=== PATIENT | male | born 1990 | race Hispanic/Latino ===

== ENCOUNTER 2017-12-29 09:38 | Inpatient (IN) | payer SELFPAY ==
[2017-12-29 11:08] LABS: #Basophils 0.1 thou/uL (0.0-0.2); #Eosinphils 0.1 thou/uL (0.0-0.7); #Lymphocytes 1.6 thou/uL (1.20-3.40); #Monocytes 2.2 thou/uL (0.11-0.59); #Neutrophils 13.2 thou/uL (1.40-6.50); %Basophils 0.5 % (0.0-1.0); %Eosinophils 0.4 % (0.0-10.0); %Lymphocytes 9.4 % (21.0-51.0); %Monocytes 12.8 % (0.0-10.0); %Neutrophils 76.8 % (42.0-75.0); Hemoglobin 17.5 g/dL (14.0-18.0); Mean Corpuscular HGB CONC 34.7 g/dL (32.0-36.0); Mean Corpuscular Hemoglobin 32.7 pg (27.0-31.0); Mean Corpuscular Volume 94.1 fl (80.0-94.0); Mean Platelet Volume 8.1 fL (7.4-10.4); Platelet Count 297 thou/uL (130-400); RBC Distribution Width 13.2 % (11.5-14.5); Red Blood Cell (RBC) Count 5.36 mill/uL (4.70-6.10); White Blood Cell (WBC) Count 17.2 thou/uL (4.8-10.8)
[2017-12-29 11:34] LABS: ALT (SGPT) 57 U/L (8-55); AST (SGOT) 28 U/L (5-34); Albumin 4.4 g/dL (3.5-5.0); Alkaline Phosphatase 94 U/L (40-150); Anion Gap 15 mmol/L (10-20); BUN (Urea Nitrogen) 8 mg/dL (8.9-20.6); Bilirubin, Total 1.7 mg/dL (0.2-1.2); Calc. Creatinine Clearance 0 mL/min (70-130); Calcium 9.6 mg/dL (7.8-10.44); Carbon Dioxide 23 mmol/L (22-29); Chloride 101 mmol/L (98-107); Estimated GFR-MDRD Greater than 90; Globulin 3.6 g/dL (2.4-3.5); Glucose 94 mg/dL (70-105); Potassium 4.2 mmol/L (3.5-5.1); Sodium 135 mmol/L (136-145)
[2017-12-29] MEDS ORDERED: Ondansetron HCl/PF 4 MG/2 ML Vial IVP PRN ×2 (13:48→15:32)
[2017-12-29] MEDS ORDERED: Ondansetron ODT 4 MG TAB PO PRN ×2 (13:49→15:32)
[2017-12-29 13:51] VITALS: BMI 32.5
[2017-12-29] MEDS ORDERED: Sodium Chloride 0.9% 1,000 ML IV SCH (14:00)
[2017-12-29] MEDS ORDERED: HYDROcodone/Acetaminophen 5/325 mg Tablet PO PRN (15:32)
[2017-12-29] MEDS ORDERED: cloNIDine 0.1 MG TAB PO PRN (15:32)
[2017-12-29] MEDS ORDERED: hydrALAZINE 20 MG/ML VIAL SLOW IVP PRN (15:32)
[2017-12-29] MEDS ORDERED: Acetaminophen 500 MG TAB PO PRN (15:32)
[2017-12-29] MEDS ORDERED: Boostrix 0.5 ML VIAL IM ONE (15:35)
[2017-12-29] MEDS: cefTRIAXone\\ROCEPHIN 2 GM in Sodium Chloride 0.9% 100 ML IVPB SCH (17:40)
[2017-12-29] MEDS: Ketorolac Tromethamine 30 MG/ML VIAL IVP SCH (17:42)
[2017-12-29] MEDS ORDERED: Adacel (T-DAP) 0.5 ML VIAL IM ONE (17:45)
[2017-12-29] MEDS ORDERED: Piperacillin/Tazobactam 4.5 GM in Sodium Chloride 0.9% 100 ML IVPB SCH (18:00)
[2017-12-29] MEDS: Famotidine 20 MG TAB PO SCH (19:45)
--- NOTE | 2017-12-29 22:16 | HP ---
DATE OF ADMISSION: 12/29/2017 PRIMARY CARE PROVIDER: Jean mariano. CHIEF COMPLAINT: Left arm pain and redness. HISTORY OF PRESENT ILLNESS: This is a 27-year-old male who presents to [facility], complaining of increasing swelling, redness and pain to the left arm. The patient sta dangelo he scraped his arm while doing [employer] work approximately a week ago with noting a small area of pustule on the elbow region. The patient was attempted to drain the area with a knife that he lit a match and sterilized and drained some purulence out of the elbow. The patient noted increasing redne ss progressing rapidly in the last 24 to 48 hours. The patient had subjective fever at home with bod y aches and chills. The patient also noted a small pustule on the left knee area sustained at the [facility] time of the left elbow scraped. The patient states this area has been healing after manually expr essing some purulence. The patient states he has had similar episodes on the ankle and mid left thig h in the remote past. The patient denies any known history of diabetes or immunosuppression. The zaheer cabrera states he takes no chronic medications and has no a significant medical history. Patient works in the [employer] industry and remains active with a physically taxing job. The patient is unsure of h is last tetanus. The patient has noticed increasing redness and swelling to the left arm, especially around the elbow region extending up into the upper left arm. In the emergency room, the patient un derwent general evaluation, receiving vancomycin and Zosyn as well as intravenous normal saline. PAST MEDICAL HISTORY: 1. ADHD. 2. Question of bipolar disorder. 3. Alcohol use. 4. Marijuana use. 5. Tobacco use. PAST SURGICAL HISTORY: 1. Status post tonsillectomy. 2. Status post incision and drainage of several skin abscesses. CURRENT MEDICATIONS: Reviewed and negative. ALLERGIES: No known drug allergies. FAMILY HISTORY: Multiple family members with diabetes mellitus. SOCIAL HISTORY: Resides in [place], [place]. Single. Smokes up to 1 to 1-1/2 packs of cigarettes daily . Uses marijuana regularly. Drinks alcohol weekly. REVIEW OF SYSTEMS: The following complete review of systems was negative, unless otherwise mentioned in the HPI or below: Constitutional: Weight loss or gain, ability to conduct usual activities. Sk in: Rash, itching. Eyes: Double vision, pain. ENT/Mouth: Nose bleeding, neck stiffness, pain, te nderness. Cardiovascular: Palpitations, dyspnea on exertion, orthopnea. Respiratory: Shortness of breath, wheezing, cough, hemoptysis, fever or night sweats. Gastrointestinal: Poor appetite, abdom inal pain, heartburn, nausea, vomiting, constipation, or diarrhea. Genitourinary: Urgency, frequenc y, dysuria, nocturia. Musculoskeletal: Pain, swelling. Neurologic/Psychiatric: Anxiety, depressio n. Allergy/Immunologic: Skin rash, bleeding tendency. PHYSICAL EXAMINATION: VITAL SIGNS: On admission, blood pressure 128/83, pulse 91, respiratory rate 16, temperature 98.9 de grees Fahrenheit, O2 saturation 98% on room air. GENERAL APPEARANCE: This is a 27-year-old male, alert, and oriented x3, pleasant, conversan t, in no acute distress. HEENT: Pupils are equal, round, and reactive to light and accommodation. Extraocular muscles are in tact. No scleral icterus, no conjunctival injection. Nares patent. OP is clear. Teeth in fair rep air. NECK: Supple. No cervical adenopathy, no thyromegaly, no carotid bruits, no JVD appreciated. Cervi britton spine with full active and passive range of motion. No meningeal signs appreciated. CHEST: Lungs are clear to auscultation bilaterally. CARDIOVASCULAR: S1, S2, without noted murmur, rub, or gallop. ABDOMEN: Rounded, soft, nontender, nondistended. Bowel sounds are positive in all four quadrants. There is no hepatosplenomegaly, no abdominal bruits, no rebound or guarding appreciated. EXTREMITIES: Warm and dry with fair turgor. Edema noted to the left upper extremity from the distal forearm to the mid humerus with erythema and edema in the elbow region. Circumscribed area of ulcer ation at the elbow with expressible purulence. Positive tenderness to palpation. Neurovascularly in tact distally of the left upper extremity. Lower extremities without clubbing, cyanosis, or asymmetr ic edema. Pulses palpable in all extremities. NEUROLOGIC: Cranial nerves II through XII are grossly intact. No focal or lateralizing signs apprec iated. PERTINENT LABORATORY FINDINGS: Sodium 135, potassium 4.2, chloride 101, CO2 of 23, BUN 8, creatinine 0.81, glucose 94. Lactic acid level 0.8, total bilirubin 1.7, AST 28, ALT of 57, albumin 4.4. CBC showed a white blood cell count of 17.2, hemoglobin 17.5, hematocrit 50, MCV 94, platelet count 297,0 00 with 77% neutrophils. ASSESSMENT AND PLAN: 1. Left upper extremity olecranon abscess/cellulitis. The patient will be admitted to the [facility]. We will continue vancomycin 1 gram IV q.12 hours with additional Rocephin 2 grams IV q.24 hour s. We will continue IV antibiotic therapy and monitor for potential need of incision and drainage. Expressible purulence noted with open communication to likely superficial abscess. We will continue monitoring over the next 24 hours. Pain control with Toradol 30 mg IV q.6 hours, [place] 5/325 mg p.o. q.6 hours p.r.n. Wound care for local care. 2. Neutrophilic leukocytosis. Secondarily to #1. We will continue serial CBC assessment and monito r white blood cell trend. 3. Polysubstance use. We will offer smoking cessation resources and information regarding marijuana use. 4. Transaminitis. Mild. We will continue to monitor serial liver function test trend. No current evidence to suggest an acute obstructive process. 5. Prophylaxis. Sequential compression devices while in bed. Pepcid 20 mg p.o. b.i.d. 6. Tetanus immunization. 7. Code status is FULL. Surrogate medical decision maker is the patient's mother.
[2017-12-30] MEDS ORDERED: Vancomycin HCl 1 GM in Premix Bag 1 BAG IVPB SCH
[2017-12-30] MEDS: Ketorolac Tromethamine 30 MG/ML VIAL IVP SCH ×4 (00:12→17:15)
[2017-12-30] MEDS: Vancomycin HCl 1 GM in Premix Bag 1 BAG IVPB SCH ×2 (00:13→12:23)
[2017-12-30 04:47] LABS: Band 5 % (5-11); Eosinophils 2 % (0-10); Hemoglobin 15.6 g/dL (14.0-18.0); Lymphocytes 20 % (21-51); MDiff Complete? YES; Mean Corpuscular HGB CONC 33.3 g/dL (32.0-36.0); Mean Corpuscular Hemoglobin 31.8 pg (27.0-31.0); Mean Corpuscular Volume 95.7 fl (80.0-94.0); Mean Platelet Volume 8.4 fL (7.4-10.4); Monocytes 10 % (0-10); Neutrophil 61 % (42-75); PLT Morphology Comment Appears Adequate; Platelet Count 251 thou/uL (130-400); RBC Distribution Width 13.2 % (11.5-14.5); White Blood Cell (WBC) Count 10.4 thou/uL (4.8-10.8)
[2017-12-30 04:52] LABS: ALT (SGPT) 33 U/L (8-55); AST (SGOT) 15 U/L (5-34); Albumin 3.2 g/dL (3.5-5.0); Alkaline Phosphatase 90 U/L (40-150); Anion Gap 10 mmol/L (10-20); BUN (Urea Nitrogen) 10 mg/dL (8.9-20.6); Bilirubin, Total 0.4 mg/dL (0.2-1.2); Calc. Creatinine Clearance 181 mL/min (70-130); Calcium 8.6 mg/dL (7.8-10.44); Carbon Dioxide 24 mmol/L (22-29); Chloride 107 mmol/L (98-107); Estimated GFR-MDRD Greater than 90; Globulin 2.6 g/dL (2.4-3.5); Glucose 109 mg/dL (70-105); Potassium 3.8 mmol/L (3.5-5.1); Protein, Total 5.8 g/dL (6.0-8.3); Sodium 137 mmol/L (136-145)
[2017-12-30] MEDS: Famotidine 20 MG TAB PO SCH ×2 (06:57→20:00)
[2017-12-30] MEDS ORDERED: Lidocaine 1% w/Epinephrine 1:100K 20 ML VIAL ONE (10:01)
[2017-12-30] MEDS: cefTRIAXone\\ROCEPHIN 2 GM in Sodium Chloride 0.9% 100 ML IVPB SCH (17:16)
--- NOTE | 2017-12-30 20:27 | PDOC.PN ---
- Subjective Encounter Start Date: 12/30/17 Encounter Start Time: 10:05 Subjective: f/u for L elbow abscess/cellulitis on Vancomycin and Rocephin. Some -: improvement in redness and pain. - Objective Resuscitation Status: Resuscitation Status FULL:Full Resuscitation MAR Reviewed: Yes Vital Signs & Weight: Vital Signs (12 hours) Temp Pulse Resp BP Pulse Ox 12/30/17 19:53 98.4 F 54 L 16 115/71 98 12/30/17 17:06 98 F 64 16 118/78 95 12/30/17 12:04 98.5 F 67 16 123/71 95 Weight Admit Weight 189 lb 9.561 oz Weight 189 lb 9.561 oz Result Diagrams: 12/30/17 04:01 12/30/17 04:01 Additional Labs: Microbiology 12/29/17 11:55 Venous blood - Right Arm Blood Culture - Preliminary Specimen has been received and culture in progress. No Growth to date. 12/29/17 11:53 Elbow - Pending Bacterial Culture - Preliminary Staphylococcus aureus 12/29/17 10:58 Venous blood - Right Arm Blood Culture - Preliminary Specimen has been received and culture in progress. No Growth to date. Laboratory Tests 12/29/17 12/29/17 10:58 10:58 WBC 17.2 H Neutrophils % 76.8 H Total Bilirubin 1.7 H ALT 57 H Phys Exam - Physical Examination Constitutional: NAD HEENT: PERRLA, sclera anicteric, oral pharynx no lesions Neck: no nodes, no JVD, supple, full ROM Respiratory: no wheezing, no rales, no rhonchi, clear to auscultation bilateral S1, S2 Cardiovascular: RRR, no significant murmur, no rub, gallop Gastrointestinal: soft, non-tender, no distention, positive bowel sounds L elbow with edema, expressed purulence, + TTP N/V intact distally Musculoskeletal: pulses present, edema present Neurological: normal sensation, moves all 4 limbs Psychiatric: normal affect, A&O x 3 Skin: normal turgor, cap refill <2 seconds Dx/Plan (1) Abscess of bursa of left elbow Code(s): M71.022 - ABSCESS OF BURSA, LEFT ELBOW Status: Acute Comment: Continue IV Vancomycin and Rocephin, will proceed with I&D today for assist with drainage of abscess cavity, pain control prn (2) Cellulitis of left upper extremity Code(s): L03.114 - CELLULITIS OF LEFT UPPER LIMB Status: Acute Comment: Mild improvement with IV Vanc/Rocephin, see #1 above (3) Neutrophilic leukocytosis Code(s): D72.9 - DISORDER OF WHITE BLOOD CELLS, UNSPECIFIED Status: Acute Comment: Improved with IV abx therapy, see #1 (4) Polysubstance (excluding opioids) dependence, daily use Code(s): F19.20 - OTHER PSYCHOACTIVE SUBSTANCE DEPENDENCE, UNCOMPLICATED Status: Acute Comment: Will offer resources regarding cessation as outpt - Plan continue antibiotics, 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
[2017-12-31] MEDS: Ketorolac Tromethamine 30 MG/ML VIAL IVP SCH ×5 (00:10→23:39)
[2017-12-31 01:01] LABS: Vancomycin, Trough 4.8 ug/mL
[2017-12-31] MEDS: Vancomycin HCl 1 GM in Premix Bag 1 BAG IVPB SCH (01:33)
[2017-12-31] MEDS: Vancomycin HCl 1.5 GM in Sodium Chloride 0.9% 250 ML 300 ML IVPB SCH ×3 (01:36→17:18)
[2017-12-31 04:03] LABS: Band 3 % (5-11); Eosinophils 2 % (0-10); Hemoglobin 15.3 g/dL (14.0-18.0); Lymphocytes 28 % (21-51); MDiff Complete? YES; Mean Corpuscular Hemoglobin 33.5 pg (27.0-31.0); Mean Corpuscular Volume 95.7 fL (78.0-98.0); Mean Platelet Volume 8.6 fL (7.4-10.4); Monocytes 12 % (0-10); Neutrophil 55 % (42-75); PLT Morphology Comment Appears Adequate; Platelet Count 247 thou/uL (130-400); RBC Distribution Width 13.2 % (11.5-14.5); Red Blood Cell (RBC) Count 4.58 mill/uL (4.70-6.10); White Blood Cell (WBC) Count 9.5 thou/uL (4.8-10.8)
--- NOTE | 2017-12-31 07:07 | OP ---
DATE OF PROCEDURE: 12/30/2017 PROCEDURE: Incision and drainage of left elbow abscess of the skin. CONSENT: Informed. SPORTS WRITER: Dr. Jalen Britton. CHECKER STOCKER: Dr. Usman Hopper, third year medical student ANESTHESIA: 1% lidocaine with epinephrine. DESCRIPTION: The patient was prepped and draped in sterile fashion. A Betadine swab sticks to superficial area of the left elbow with anesthesia applied using 1% lidocaine with epinephrine. Using a 15 blade, an incision was made at the apex of the abscess site on the left elbow with expression of purulent material and bloody discharge using manual and blunt dissection with hemostats. The entire cavity was excised and iodoform gauze packing was applied into the abscess cavity. Sterile gauze dressing was applied using Cob[place] and patient tolerated the procedure well. ESTIMATED BLOOD LOSS: Minimal. COMPLICATIONS: None. CONDITION OF THE PATIENT: Stable. [facility]
[2017-12-31] MEDS: Famotidine 20 MG TAB PO SCH ×2 (09:06→19:45)
--- NOTE | 2017-12-31 10:46 | PDOC.PN ---
- Subjective Encounter Start Date: 12/31/17 Encounter Start Time: 10:30 Subjective: f/u for L elbow cellulitis/abscess s/p I&D 12/30/17. Feels better with -: some pain with movement. No fever or chills. Currently on Vanc/Rocephin - Objective Resuscitation Status: Resuscitation Status FULL:Full Resuscitation MAR Reviewed: Yes Vital Signs & Weight: Vital Signs (12 hours) Temp Pulse Resp BP Pulse Ox 12/31/17 08:11 97.9 F 59 L 18 99/66 95 12/31/17 07:12 98.4 F 54 L 16 Weight Admit Weight 189 lb 9.561 oz Weight 189 lb 9.561 oz Result Diagrams: 12/31/17 00:25 12/30/17 04:01 Additional Labs: Microbiology 12/29/17 11:53 Elbow - Pending Bacterial Culture - Final Staphylococcus aureus 12/29/17 11:55 Venous blood - Right Arm Blood Culture - Preliminary Specimen has been received and culture in progress. No Growth to date. 12/29/17 11:53 Elbow - Pending Bacterial Culture - Preliminary Staphylococcus aureus 12/29/17 10:58 Venous blood - Right Arm Blood Culture - Preliminary Specimen has been received and culture in progress. No Growth to date. Laboratory Tests 12/29/17 12/29/17 10:58 10:58 WBC 17.2 H Neutrophils % 76.8 H Total Bilirubin 1.7 H ALT 57 H Phys Exam - Physical Examination Constitutional: NAD HEENT: PERRLA, sclera anicteric, oral pharynx no lesions Neck: no nodes, no JVD, supple, full ROM Respiratory: no wheezing, no rales, no rhonchi, clear to auscultation bilateral S1, S2 Cardiovascular: RRR, no significant murmur, no rub, gallop Gastrointestinal: soft, non-tender, no distention, positive bowel sounds L elbow with drainage on dressing, wound packing in place, edema decreased in forearm Musculoskeletal: pulses present Neurological: non-focal, normal sensation, moves all 4 limbs Psychiatric: normal affect, A&O x 3 Skin: no rash, normal turgor, cap refill <2 seconds Dx/Plan (1) Abscess of bursa of left elbow Code(s): M71.022 - ABSCESS OF BURSA, LEFT ELBOW Status: Acute Comment: Continue IV Vancomycin and Rocephin, s/o I&D POD #1, pain control prn, WCT for dressing changes and packing replacement (2) Cellulitis of left upper extremity Code(s): L03.114 - CELLULITIS OF LEFT UPPER LIMB Status: Acute Comment: Mild improvement with IV Vanc/Rocephin, see #1 above (3) Neutrophilic leukocytosis Code(s): D72.9 - DISORDER OF WHITE BLOOD CELLS, UNSPECIFIED Status: Acute Comment: Improved with IV abx therapy, see #1 (4) Polysubstance (excluding opioids) dependence, daily use Code(s): F19.20 - OTHER PSYCHOACTIVE SUBSTANCE DEPENDENCE, UNCOMPLICATED Status: Acute Comment: Will offer resources regarding cessation as outpt - Plan continue antibiotics, 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
[2017-12-31] MEDS: cefTRIAXone\\ROCEPHIN 2 GM in Sodium Chloride 0.9% 100 ML IVPB SCH (19:45)
[2018-01-01 01:20] LABS: Vancomycin, Trough 15.3 ug/mL
[2018-01-01] MEDS: Vancomycin HCl 1.5 GM in Sodium Chloride 0.9% 250 ML 300 ML IVPB SCH ×2 (01:40→09:40)
[2018-01-01] MEDS: Ketorolac Tromethamine 30 MG/ML VIAL IVP SCH (05:21)
[2018-01-01 08:07] VITALS: BP 119/76; TEMP 98
[2018-01-01] MEDS: Famotidine 20 MG TAB PO SCH (09:40)
--- NOTE | 2018-01-01 11:23 | DIS ---
DATE OF ADMISSION: 12/29/2017 DATE OF DISCHARGE: 01/01/2018 DISCHARGE DIAGNOSES: 1. Left elbow abscess. 2. Status post incision and drainage of left elbow abscess. 3. Cellulitis of left upper extremity, resolving. 4. Neutrophilic leukocytosis, resolved. 5. Polysubstance use. CONSULTATIONS: None. PERTINENT LABORATORY DATA AND X-RAY FINDINGS: Basic metabolic profile within normal limits. Lactic acid level 0.8. CBC showed a white blood cell count ranging between 9.5-17.2. Blood cultures x2 fro m 12/29/2017 showed no growth at 48 hours. The left elbow wound culture positive for Staphylococcus aureus. HOSPITAL COURSE: Patient was admitted after presenting with left arm pain, redness and cellulitis wi th associated olecranon bursa abscess. The patient underwent evaluation including IV antibiotic ther apy with Rocephin and vancomycin. The patient also underwent incision and drainage of the left elbow abscess with Staphylococcus aureus species noted on wound culture. The patient continued on Rocephi n and vancomycin throughout his hospital course with overall resolution of the erythema and decreased drainage from the wound site. The patient received local wound care with daily dressing changes. T he patient also received education regarding self-care after discharge. The patient was given a teta nus booster during his hospital course and overall remained clinically stable. I have examined the p atient at the time of discharge discussing followup instructions and wound care at which point the pa deborah verbalizes understanding and agreement. The patient overall clinically stable and ready for di scharge on 01/01/2018. DISCHARGE MEDICATION: Augmentin 875 mg 1 tab p.o. b.i.d. x10 days. FOLLOWUP: The patient may follow up with [facility] or [facility] All within 3 days of discharge. CONDITION ON DISCHARGE: Stable. ACTIVITY: Ad david. DIET: Regular. SPECIAL INSTRUCTIONS: Wound care instructions given with recommendations for removal of wound packin g in 24 hours and replacing with new packing. CODE STATUS: FULL. DISPOSITION: Home, 01/01/2018. Total time in preparing and coordinating this discharge is 32 minutes.
--- NOTE | 2018-01-02 13:00 | PQF ---
Yehuda KelloggHUSSAIN DO [id number] CLINICAL DOCUMENTATION CLARIFICATION FORM: POST DISCHARGE Addendum to original discharge summary date: ____ Late entry note date: _skin abscess drainage Please exercise your independent, professional judgment in responding to the clarification form. Clinical indicators are provided on the bottom of this form for your review Procedure: INCISION AND DRAINAGE OF LEFT ELBOW -- SKIN -- SUBCUTANEOUS TISSUE AND FASCIA -- BURSA [ ] Unable to determine [ ] Other procedure: CLINICAL INDICATORS - SIGNS/ SYMPTOMS / LABS Op Note/Procedure note RISK FACTORS TREATMENT (This form is maintained as a part of the permanent medical record) 2014 [employer] All Rights Reserved [email or web address] [phone] MTDD
== END 2018-01-01 12:24 | disposition home or self-care (01) | DRG 603 ==
LOC: ERS 09:38 → T4-A 13:43
PROVIDERS: ADMIT Family Medicine; ATTEND Family Medicine
PROC: 3E0234Z Introduction of Serum, Toxoid and Vaccine into Muscle, Percutaneous Approach (ICD-10-PCS; 2017-12-29)
PROC: 0H9EXZZ Drainage of Left Lower Arm Skin, External Approach (ICD-10-PCS; principal; 2017-12-30)
DX: L02.414 Cutaneous abscess of left upper limb (principal); L03.114 Cellulitis of left upper limb; F17.210 Nicotine dependence, cigarettes, uncomplicated; M71.022 Abscess of bursa, left elbow; S50.312A Abrasion of left elbow, initial encounter; X58.XXXA Exposure to other specified factors, initial encounter; F90.9 Attention-deficit hyperactivity disorder, unspecified type; R74.0 Nonspecific elevation of levels of transaminase and lactic acid dehydrogenase [LDH]; B95.8 Unspecified staphylococcus as the cause of diseases classified elsewhere; F31.9 Bipolar disorder, unspecified; F12.10 Cannabis abuse, uncomplicated; F10.10 Alcohol abuse, uncomplicated; Y92.9 Unspecified place or not applicable; Z86.19 Personal history of other infectious and parasitic diseases; Z87.2 Personal history of diseases of the skin and subcutaneous tissue; Z83.3 Family history of diabetes mellitus; Z23 Encounter for immunization
CPT/HCPCS: 36415; 80053; 80202; 83605; 85007; 85025; 85027; 87040; 87070; 87077; 87186; 87205; 90715; 96365; 99406; J0696; J1885; J2001; J3370; J7050

== ENCOUNTER 2018-12-10 14:16 | Emergency (ER) | payer SELFPAY ==
[~2018-12-10 14:16] MED LIST: ISOVUE-370 76%-LOCM 1 ML ONE
[2018-12-10] MEDS ORDERED: HYDROcodone/Acetaminophen 10/325 mg Tablet ONE (14:49)
--- NOTE | 2018-12-10 14:55 | RAD ---
RADIOGRAPH RIGHT FOREARM 2 VIEWS: Date: 12/10/18 Time: 1439 hours HISTORY: 28-year-old male with painful, traumatic right wrist deformity due to fall from roof. FINDINGS: There is a comminuted fracture of the distal radial metaphysis and epiphysis, with intraarticular inv olvement where there is step-off at the radiocarpal joint surface. Dorsal angulation of the major dis roverto fragment. No fracture of the ulna identified. IMPRESSION: Acute, traumatic, closed, comminuted, displaced, intraarticular fracture of distal radial metaphysis and epiphysis. POS: [facility]
--- NOTE | 2018-12-10 14:56 | RAD ---
RADIOGRAPH RIGHT WRIST 2 VIEWS: Date: 12/10/18 Time: 1432 hours HISTORY: 28-year-old male with painful, traumatic right wrist deformity due to fall from roof. FINDINGS: There is a comminuted fracture of the distal radial metaphysis and epiphysis, with intraarticular inv olvement where there is step-off at the radiocarpal joint surface. Dorsal angulation of the major dis roverto fragment. No fracture of the distal ulna or carpal bones identified. IMPRESSION: Acute, traumatic, closed, comminuted, displaced, intraarticular fracture of distal radial metaphysis and epiphysis. POS: [facility]
[2018-12-10] MEDS ORDERED: Lidocaine 1% (PF) 30 ML VIAL ONE (15:01)
[2018-12-10] MEDS ORDERED: Bupivacaine 0.5% 10 ML VIAL ONE (15:01)
[2018-12-10] MEDS ORDERED: Lorazepam 2 MG/ML VIAL ONE (15:37)
--- NOTE | 2018-12-10 15:37 | CT ---
CT Brain WO Con: 12/10/2018 3:09 PM CLINICAL HISTORY: Fall with head injury, pain. COMPARISON: 04/13/2014 FINDINGS: Hemorrhage: None. Ventricular system: Normal in size and morphology for the patient's age. Cerebral parenchyma: Normal Midline shift: None. Mass: No mass effect. Calvarium: Normal. Visualized Paranasal sinuses: Clear. IMPRESSION: No acute intracranial abnormalities. Notification of findings placed at 1533 hours.
--- NOTE | 2018-12-10 16:14 | RAD ---
PORTABLE CHEST 1 VIEW: Date: 12/10/18 Time: 1513 hours HISTORY: Trauma. Chest pain. FINDINGS: Comparison made with exam of 09/11/15. The heart size is normal. The lungs are expanded without focal areas of consolidation, pneumothoraces or pleural effusions. IMPRESSION: No acute process. POS: OFF
--- NOTE | 2018-12-10 16:40 | CT ---
CT CERVICAL SPINE WITH CORONAL AND SAGITTAL REFORMATIONS: Date: 12/10/18 HISTORY: Level II trauma. Neck pain. FINDINGS: Cervical lordosis is maintained. No fracture, subluxation, or bony destruction is seen. No prevertebr al soft tissue swelling is identified. The visualized lung dominguez are clear. IMPRESSION: No CT evidence of cervical spine fracture or traumatic subluxation. Discussed over the telephone with ER physician, Dr. Julien, at 1536 hours. CODE CR. POS: OFF
--- NOTE | 2018-12-10 16:41 | RAD ---
XR Wrist Rt 2 View: 12/10/2018 4:18 PM CLINICAL INDICATION: Right wrist fracture COMPARISON: Prior exam dated December 10, 2018 at 2:30 PM. TECHNIQUE: 2 views. Laterality: Right wrist. FINDINGS: Bones: There is stable comminuted dorsally angulated intra-articular distal radius fracture. There i s been interval placement of a fiberglass splint. Fracture alignment is unchanged. Joints: Joints space is preserved.. Soft Tissue: There is soft tissue swelling of the forearm and right wrist.. IMPRESSION: Interval placement of a splint to the right forearm. Comminuted intra-articular distal radius fractur e is not appreciably changed in position and alignment when compared to the prior exam..
--- NOTE | 2018-12-10 16:44 | CT ---
CT CHEST WITH IV CONTRAST CT ABDOMEN WITH IV CONTRAST CT PELVIS WITH IV CONTRAST CORONAL AND SAGITTAL REFORMATIONS OF THE THORACOLUMBAR SPINE: Date: 12/10/18 HISTORY: Level II trauma. Chest, abdominal, and back pain. FINDINGS: No mediastinal hematoma or intimal flap in the aorta is seen to suggest aortic transection. No pleura l or pericardial effusions are seen. No pulmonary contusions or pneumothoraces are identified. There are mild dependent changes in the posterior lung bases. The liver, spleen, pancreas, adrenal glands, and kidneys are intact. No free air or free fluid is see n in the abdomen or pelvis. Urinary bladder and gallbladder also appear intact. No fracture or subluxation is seen in the thoracolumbar spine. IMPRESSION: No CT evidence of acute intrathoracic or solid organ injury. Discussed over the telephone with ER physician, Dr. Astrid Koenig, at 1543 hours. CODE CR. POS: OFF
== END 2018-12-10 17:40 | disposition home or self-care (01) ==
LOC: ERS 14:16
DX: S52.571A Other intraarticular fracture of lower end of right radius, initial encounter for closed fracture (principal); S20.211A Contusion of right front wall of thorax, initial encounter; F31.9 Bipolar disorder, unspecified; F90.9 Attention-deficit hyperactivity disorder, unspecified type; F17.210 Nicotine dependence, cigarettes, uncomplicated; W13.2XXA Fall from, out of or through roof, initial encounter
CPT/HCPCS: 29125; 70450; 71045; 71260; 72125; 74177; 96374; J2001; J2060; J3490; Q9966

== ENCOUNTER 2018-12-11 08:49 | Emergency (ER) | payer SELFPAY | END 2018-12-11 09:15 | disposition home or self-care (01) | LOC: ERS 08:49 | DX: S62.101D Fracture of unspecified carpal bone, right wrist, subsequent encounter for fracture with routine healing (principal); Z76.0 Encounter for issue of repeat prescription; F31.9 Bipolar disorder, unspecified; F90.9 Attention-deficit hyperactivity disorder, unspecified type; F17.210 Nicotine dependence, cigarettes, uncomplicated | CPT/HCPCS: 99283 ==

== ENCOUNTER 2018-12-11 17:18 | Emergency (ER) | payer SELFPAY ==
[2018-12-11] MEDS ORDERED: HYDROcodone/Acetaminophen 10/325 mg Tablet ONE (17:38)
--- NOTE | 2018-12-11 18:45 | RAD ---
EXAM: 3 views of the right hand COMPARISON: None HISTORY: Tingling and coldness in fingers. Distal forearm fracture. FINDINGS: 3 views of the right hand shows no evidence of acute fracture or dislocation of the bones o f the hand. There is a comminuted distal radius fracture that is partially visualized. No degenerative changes are seen. No soft tissue swelling is present. IMPRESSION: 1. No evidence of fracture of the bones of the hand 2. Distal radius fracture
--- NOTE | 2018-12-11 18:46 | RAD ---
EXAM: 2 views of the right forearm HISTORY: Right forearm fracture with pain COMPARISON: 12/10/2018 FINDINGS: There is a stable intra-articular fracture of the distal radius. Moderate diffuse tissue sw elling is seen. No degenerative changes are seen in the wrist or elbow. IMPRESSION: Stable intra-articular distal radius fracture
== END 2018-12-11 19:27 | disposition home or self-care (01) ==
LOC: ERS 17:18
DX: S52.571A Other intraarticular fracture of lower end of right radius, initial encounter for closed fracture (principal); F31.9 Bipolar disorder, unspecified; F90.9 Attention-deficit hyperactivity disorder, unspecified type; F17.210 Nicotine dependence, cigarettes, uncomplicated; W19.XXXA Unspecified fall, initial encounter
CPT/HCPCS: 24650

== ENCOUNTER 2018-12-14 13:10 | Outpatient (CLI) | payer SELFPAY ==
[2018-12-14 14:27] LABS: #Basophils 0.1 thou/uL (0.0-0.2); #Eosinphils 0.2 thou/uL (0.0-0.7); #Lymphocytes 2.3 thou/uL (1.20-3.40); #Monocytes 0.7 thou/uL (0.11-0.59); #Neutrophils 4.9 thou/uL (1.40-6.50); %Eosinophils 2.9 % (0.0-10.0); %Lymphocytes 27.6 % (21.0-51.0); %Monocytes 8.7 % (0.0-10.0); %Neutrophils 59.8 % (42.0-75.0); Hemoglobin 14.3 g/dL (14.0-18.0); Mean Corpuscular HGB CONC 33.7 g/dL (32.0-36.0); Mean Corpuscular Hemoglobin 31.5 pg (27.0-31.0); Mean Corpuscular Volume 93.6 fL (78.0-98.0); Mean Platelet Volume 8.5 fL (7.4-10.4); Platelet Count 256 thou/uL (130-400); Red Blood Cell (RBC) Count 4.55 mill/uL (4.70-6.10); White Blood Cell (WBC) Count 8.2 thou/uL (4.8-10.8)
== END 2018-12-14 13:11 | disposition home or self-care (01) ==
LOC: LABBT 13:10
PROVIDERS: ATTEND Orthopaedic Surgery Hand Surgery
DX: Z01.812 Encounter for preprocedural laboratory examination (principal); S62.101A Fracture of unspecified carpal bone, right wrist, initial encounter for closed fracture
CPT/HCPCS: 85025

== ENCOUNTER 2018-12-15 12:38 | Day surgery (SDC) | payer SELFPAY ==
[2018-12-14 13:50] VITALS: BMI 29.2
[2018-12-15] MEDS ORDERED: Fentanyl 100 MCG/2 ML VIAL ONE ×2 (14:20→15:25)
[2018-12-15] MEDS ORDERED: Lidocaine 1% (PF) 30 ML VIAL ONE (14:20)
[2018-12-15] MEDS ORDERED: Midazolam HCl 2 mg/2 ml Vial ONE ×2 (14:20→15:25)
[2018-12-15] MEDS ORDERED: Bacitracin Zinc Ointment 30 gm TUBE ONE (15:31)
[2018-12-15] MEDS ORDERED: Bupivacaine PF 0.5% 30 ML VIAL ONE (15:31)
--- NOTE | 2018-12-15 19:00 | RAD ---
RIGHT WRIST TWO VIEWS: 12/15/18 HISTORY: ORIF right wrist for fracture. Metal plate and screws are placed stabilizing a comminuted distal radial fracture with intra-articula r extension with improvement in position and alignment from the Prereduction study. IMPRESSION: Status post ORIF distal right radius with improvement in position and alignment. POS: OFF
[2018-12-15] MEDS ORDERED: Ketorolac Tromethamine 30 MG/ML VIAL ONE (19:03)
--- NOTE | 2018-12-16 14:28 | OP ---
DATE OF PROCEDURE: 12/15/2018 PREOPERATIVE DIAGNOSES: Right 4-part displaced distal radius fracture and dorsal comminution. POSTOPERATIVE DIAGNOSES: Right 4-part displaced distal radius fracture and dorsal comminution. PROCEDURES PERFORMED: 1. Open reduction and internal fixation of 4-part of the right distal radius fracture. 2. Major bone grafting. 3. C-arm supervision. 4. Long-arm splint application. BONE GRAFT: 10 mL total of cancellous cubes. FINDINGS: Severe dorsal comminution even involving a split of the Melone fragment into 4-part. DESCRIPTION OF PROCEDURE: After successful general endotracheal anesthesia by [facility], the patient had limb prepped and draped. The C-arm brought to the field, closed reduction was not adequate. We then knew we have to make an incision with the greatest comminution in dorsal approach was indicated. The patient had the incision outlined, a 20 mL of 0.5% Marcaine given and we made approach to using the interval between the third and fourth dorsal compartment. We then visualized the extensor pollicis longus, protected it with appropriate retraction and noticed that once we opened the retinaculum, fracture could be visualized. There was marked comminution. We did not open the primary radiocarpal joint. We then began to pieced the pieces back together finding that the styloid portion was in three fragments and the Melone portion was in four fragments. We gently first reconstructed the sagittal plane by DM pack in the primary fragments from the shaft. We then slowly lifted them up individually, and in the frontal plane, realigned the joint surface, held this with a large moulton elevator at approximately 5 degrees palmar tilt. We then began to place cancellous cubes underneath the surface to support this until we had reached a point, where we had corrected the previous 38 degree dorsal tilt angulation, restored the height to a 2 mm radial height, and we had no step-off. There was an approximately 0.5 mm fracture line still visible, but there was no step-off, and we bone grafted this. We provisionally pinned this to hold this position. There was somewhat comminution around Richard tubercle that was not elevated, but we used dual plates avoiding the prominence of the Richard tubercle, first fixing the radial styloid four portion while we have four K-wires supporting the remaining fragments with two 7 screws and a L-plate from the dorsal Synthe[employer] distal radius set. A T-plate, was used to place the screw in the Melone fragment and this maintained approximately 3 degree palmar tilt. We had to maintain the height, the bone grafting was augmented around the plate, there was one fracture line seen between the Melone and in the middle of the Melone medial complex, but this was bone grafted up to the level of the joint surface with no step-off. The patient then had 4 screws class eight cortices proximal to the fracture and five screws/ten cortices distal. Hip passive range of motion without crepitance of almost 75 degrees of dorsiflexion and 85 degrees palmar flexion. No instability was seen in distal radioulnar joint and there was no fracture of the ulna. There was no evidence of widening of the intercarpal distance at this time. The patient then had the tourniquet deflated, bone graft had been completed. We closed the retinaculum except for approximate 1 cm area, where we had been too tight. This was done with a 2-0 Vicryl undyed. A 4-0 Monocryl was used for subcutaneous running closure and the epidermis reapproximated with interrupted 4-0 nylon. The patient left the operating room without evidence of anesthetic or operative complication. Job ID: [id number]
== END 2018-12-15 20:25 | disposition home or self-care (01) ==
LOC: SDC 12:38
PROVIDERS: ATTEND Orthopaedic Surgery Hand Surgery
PROC: 0PUH0JZ Supplement Right Radius with Synthetic Substitute, Open Approach (ICD-10-PCS; principal; 2018-12-15)
PROC: 3E0T3BZ Introduction of Anesthetic Agent into Peripheral Nerves and Plexi, Percutaneous Approach (ICD-10-PCS; principal; 2018-12-15)
PROC: 0PSH04Z Reposition Right Radius with Internal Fixation Device, Open Approach (ICD-10-PCS; principal; 2018-12-15)
DX: S52.571A Other intraarticular fracture of lower end of right radius, initial encounter for closed fracture (principal); S52.511A Displaced fracture of right radial styloid process, initial encounter for closed fracture; G89.18 Other acute postprocedural pain; F17.200 Nicotine dependence, unspecified, uncomplicated; Z79.1 Long term (current) use of non-steroidal anti-inflammatories (NSAID); Z79.899 Other long term (current) drug therapy; W13.2XXA Fall from, out of or through roof, initial encounter
CPT/HCPCS: 76000; C1713; J0690; J1885; J2001; J2250; J3010; S0020

== ENCOUNTER 2019-11-15 14:52 | Emergency (ER) | payer OTHER, SELFPAY ==
--- NOTE | 2019-11-17 12:45 | RAD ---
Exam:Right shoulder 3 view HISTORY: Trauma. Pain. COMPARISON: None FINDINGS: Glenohumeral joint space is preserved. No fracture or dislocation. Remote injury to the ant erolateral right second rib suspected. Visualized lung parenchyma is unremarkable IMPRESSION: No fracture or dislocation. Remote injury to the right second rib.
== END 2019-11-15 16:00 | disposition home or self-care (01) ==
LOC: ERS 14:52
DX: S46.911A Strain of unspecified muscle, fascia and tendon at shoulder and upper arm level, right arm, initial encounter (principal); F31.9 Bipolar disorder, unspecified; F90.9 Attention-deficit hyperactivity disorder, unspecified type; V89.2XXA Person injured in unspecified motor-vehicle accident, traffic, initial encounter

== ENCOUNTER 2023-02-20 11:09 | Emergency (ER) | payer SELFPAY ==
[2023-02-20 14:39] LABS: #Basophils 0.1 thou/uL (0.0-0.2); #Eosinphils 0.2 thou/uL (0.0-0.7); #Neutrophils 5.5 thou/uL (1.40-6.50); %Basophils 1.3 % (0.0-1.0); %Eosinophils 2.5 % (0.0-10.0); %Lymphocytes 19.4 % (21.0-51.0); %Monocytes 12.1 % (0.0-10.0); %Neutrophils 64.3 % (42.0-75.0); Hematocrit 49.2 % (42.0-52.0); Hemoglobin 17.5 g/dL (14.0-18.0); Mean Corpuscular HGB CONC 35.6 g/dL (32.0-36.0); Mean Corpuscular Hemoglobin 32.6 pg (27.0-31.0); Mean Corpuscular Volume 91.6 fl (78.0-98.0); Mean Platelet Volume 10.2 fL (7.4-10.4); Platelet Count 313 10x3/uL (130-400); RBC Distribution Width 13.1 % (11.5-14.5); Red Blood Cell (RBC) Count 5.37 mill/uL (4.70-6.10); White Blood Cell (WBC) Count 8.5 10x3/uL (4.8-10.8)
[2023-02-20 15:08] LABS: ALT (SGPT) 28 U/L (8-55); AST (SGOT) 41 U/L (5-34); Albumin 4.8 g/dL (3.5-5.0); Alkaline Phosphatase 79 U/L (40-110); Anion Gap 16 mmol/L (10-20); BUN (Urea Nitrogen) 11 mg/dL (8.9-20.6); Bilirubin, Total 1.3 mg/dL (0.2-1.2); Calc. Creatinine Clearance 0 mL/min (70-130); Calcium 9.6 mg/dL (7.8-10.44); Carbon Dioxide 23 mmol/L (22-29); Chloride 102 mmol/L (98-107); Estimated GFR 121; Globulin 2.7 g/dL (2.4-3.5); Glucose 91 mg/dL (70-105); Potassium 4.4 mmol/L (3.5-5.1); Protein, Total 7.5 g/dL (6.0-8.3); Sodium 137 mmol/L (136-145)
[2023-02-20 17:21] LABS: Bacteria/HPF None Seen HPF (None Seen); Bilirubin Negative (Negative); Blood, Urine Negative (Negative); CAUTI Indications for Culture Pelvic or flank pain; Clarity Clear (Clear); Glucose, Urine (Dipstick) Normal (Negative); Ketone, Urine 60 mg/dL (Negative); Leukocyte 250 Leu/uL (Negative); Nitrite Negative (Negative); Protein, Urine (Dipstick) Negative (Neg-Trace); RBC/HPF 0-3 HPF (0-3); Specific Gravity, Urine 1.017 (1.002-1.036); Squamous Epithelial None Seen HPF (0-3); Urobilinogen Normal mg/dL (Less than 2); pH, Urine 5.5 (5.0-9.0)
[2023-02-20 17:23] LABS: Urine Culture Reflex No No
== END 2023-02-20 18:02 | disposition home or self-care (01) ==
LOC: ERS 11:09
DX: J20.9 Acute bronchitis, unspecified (principal); M62.838 Other muscle spasm; F17.210 Nicotine dependence, cigarettes, uncomplicated
CPT/HCPCS: 36415; 71046; 80053; 81001; 85025; 85379

== ENCOUNTER 2024-05-22 15:36 | Emergency (ER) | payer SELFPAY ==
[2024-05-22] MEDS ORDERED: Lidocaine 1% PF 5 ML VIAL ONE (16:41)
[2024-05-22] MEDS ORDERED: Boostrix 0.5 ML (Tdap) VIAL (>/=7 yrs of age) ONE (16:42)
[2024-05-22] MEDS ORDERED: Bacitracin 1 PK ONE (17:05)
== END 2024-05-22 17:49 | disposition home or self-care (01) ==
LOC: ERS 15:36
DX: S61.012A Laceration without foreign body of left thumb without damage to nail, initial encounter (principal); R03.0 Elevated blood-pressure reading, without diagnosis of hypertension; F17.210 Nicotine dependence, cigarettes, uncomplicated; W26.8XXA Contact with other sharp object(s), not elsewhere classified, initial encounter; Z23 Encounter for immunization; Z55.6 Problems related to health literacy
CPT/HCPCS: 12001; 90471; 90715